=== PATIENT | male | born 1990 | race Caucasian/White ===

== ENCOUNTER 2016-11-19 05:29 | Emergency (ER) | payer BC, OTHER ==
[~2016-11-19] VITALS: Ht 175.3 cm; Wt 95.3 kg
[2016-11-19] MEDS ORDERED: BUSPIRONE HCL10 MG PO (05:54)
[2016-11-19] MEDS ORDERED: PROZAC20 MG PO (05:54)
[2016-11-19] MEDS ORDERED: PROTONIX40 M2 PO (05:54)
[2016-11-19] MEDS ORDERED: NORCO 5-325 TA1 EACH PO (06:25)
[2016-11-19 07:14] VITALS: BP 139/86
== END 2016-11-19 07:17 | disposition home or self-care (01) ==
LOC: ER 05:29
DX: S92.102A Unspecified fracture of left talus, initial encounter for closed fracture (principal); S82.832A Other fracture of upper and lower end of left fibula, initial encounter for closed fracture; Z88.1 Allergy status to other antibiotic agents; X58.XXXA Exposure to other specified factors, initial encounter; Y93.89 Activity, other specified; Y92.89 Other specified places as the place of occurrence of the external cause; Y99.8 Other external cause status